=== PATIENT | male | born 2000 | race African-American/Black ===

== ENCOUNTER 2019-05-09 11:39 | Emergency (ER) | payer MEDICAID ==
[~2019-05-09] VITALS: Ht 172.7 cm; Wt 90.9 kg
[2019-05-09] MEDS ORDERED: QUET400T PO (12:17)
[2019-05-09] MEDS ORDERED: OLAN5TAB2 PO (12:17)
[2019-05-09 12:43] LABS: GLUCOSE,POINT OF CARE 100 MG/DL (70-110)
[2019-05-09 12:54] LABS: BASOPHILS % (AUTO) 0.3 % (0.0-2.0); EOSINOPHILS % (AUTO) 0.4 % (1.0-6.0); HEMOGLOBIN 14.8 g/dL (13.5-17.5); LYMPHOCYTES # (AUTO) 1.9 K/uL (1.0-4.8); LYMPHOCYTES % (AUTO) 14.9 % (22.0-44.0); MEAN CORPUSCULAR HEMOGLOBIN 31.4 pg (26.0-34.0); MEAN CORPUSCULAR HGB CONC 32.8 G/dL (31.0-37.0); MEAN CORPUSCULAR VOLUME 96 fL (80-100); MONOCYTES # (AUTO) 1.1 K/uL (0.1-1.0); NEUTROPHILS # (AUTO) 9.5 K/uL (1.8-7.7); NEUTROPHILS % (AUTO) 75.4 % (40.0-70.0); PLATELET COUNT (AUTO) 308 K/uL (150-450); RED CELL DISTRIBUTION WIDTH 12.1 % (11.5-14.5)
[2019-05-09 13:03] LABS: ANION GAP 9 mmol/L (8-16); CALCIUM, TOTAL 9.8 mg/dL (8.8-10.5); CARBON DIOXIDE 27 mmol/L (22-29); CHLORIDE 101 mmol/L (98-107); CREATININE 1.25 mg/dL (0.60-1.30); GLOMERULAR FILTR. RATE CALC > 60 mL/min (>60); GLUCOSE,RANDOM 95 mg/dL (70-110); POTASSIUM 4.1 mmol/L (3.5-5.1); SODIUM SERUM 137 mmol/L (136-145); UREA NITROGEN, BLOOD 11 mg/dL (7-18)
[2019-05-09 13:09] LABS: ALANINE AMINOTRANSFERASE 48 U/L (12-78); ALKALINE PHOSPHATASE 84 U/L (46-116); ASPARTATE AMINOTRANSFERASE 31 U/L (15-37); BILIRUBIN,TOTAL 1.1 mg/dL (0.1-1.0); TOTAL PROTEIN, SERUM 7.9 g/dL (6.4-8.2)
[2019-05-09 15:47] LABS: APPEARANCE,URINE CLEAR (CLEAR); BILIRUBIN,URINE NEGATIVE (NEGATIVE); GLUCOSE, URINE (UA) NEGATIVE (NEGATIVE); KETONES,URINE NEGATIVE (NEGATIVE); LEUKOCYTE ESTERASE ,URINE NEGATIVE (NEGATIVE); NITRATE,URINE NEGATIVE (NEGATIVE); OCCULT BLOOD,URINE NEGATIVE (NEGATIVE); PH,URINE 6.5 (5.0-8.0)
[2019-05-09 15:51] LABS: PROTEIN,URINE NEGATIVE (NEGATIVE)
[2019-05-09 15:52] LABS: AMPHET/METH SCREEN,URINE POSITIVE (NEGATIVE); BARBITURATE SCREEN, URINE NEGATIVE (NEGATIVE); BENZODIAZEPINES SCREEN,URINE NEGATIVE (NEGATIVE); CANNABINOID SCREEN,URINE POSITIVE (NEGATIVE); COCAINE SCREEN,URINE NEGATIVE (NEGATIVE); METHADONE SCREEN, URINE NEGATIVE (NEGATIVE); OPIATE SCREEN,URINE NEGATIVE (NEGATIVE); PHENCYCLIDINE SCREEN,URINE NEGATIVE (NEGATIVE)
[2019-05-09 17:32] VITALS: BP 132/92
== END 2019-05-09 17:33 | disposition home or self-care (01) ==
LOC: EMS 11:41
DX: F15.10 Other stimulant abuse, uncomplicated (principal); F12.90 Cannabis use, unspecified, uncomplicated; E11.9 Type 2 diabetes mellitus without complications; F41.9 Anxiety disorder, unspecified; F32.9 Major depressive disorder, single episode, unspecified; F20.9 Schizophrenia, unspecified; Z79.899 Other long term (current) drug therapy
CPT/HCPCS: 36415; 80053; 80307; 81003; 82962; 85025; 99285; G0480

== ENCOUNTER 2020-01-27 00:04 | Inpatient (IN) | payer MEDICAID ==
[~2020-01-27] VITALS: Ht 170.2 cm; Wt 97.5 kg
[~2020-01-27 00:04] MED LIST: OLAN5TAB2 PO; QUET400T PO
[2020-01-27] MEDS ORDERED: OLAN2.5T3 PO (01:19)
[2020-01-27] MEDS ORDERED: ZIPR20CA2 PO (01:19)
[2020-01-27 01:58] LABS: BASOPHILS % (AUTO) 0.5 % (0.0-2.0); EOSINOPHILS % (AUTO) 0.4 % (1.0-6.0); HEMATOCRIT 43.7 % (41-53); HEMOGLOBIN 14.5 g/dL (13.5-17.5); LYMPHOCYTES # (AUTO) 2.9 K/uL (1.0-4.8); LYMPHOCYTES % (AUTO) 21.2 % (22.0-44.0); MEAN CORPUSCULAR HEMOGLOBIN 30.6 pg (26.0-34.0); MEAN CORPUSCULAR HGB CONC 33.1 G/dL (31.0-37.0); MEAN CORPUSCULAR VOLUME 92 fL (80-100); MONOCYTES # (AUTO) 1.8 K/uL (0.1-1.0); MONOCYTES % (AUTO) 13.6 % (2.0-9.0); NEUTROPHILS # (AUTO) 8.8 K/uL (1.8-7.7); NEUTROPHILS % (AUTO) 64.3 % (40.0-70.0); PLATELET COUNT (AUTO) 250 K/uL (150-450); RED BLOOD CELL COUNT(AUTO) 4.74 MIL/uL (4.50-5.90); RED CELL DISTRIBUTION WIDTH 11.3 % (11.5-14.5)
[2020-01-27 02:06] LABS: AMPHET/METH SCREEN,URINE POSITIVE (NEGATIVE); BARBITURATE SCREEN, URINE NEGATIVE (NEGATIVE); BENZODIAZEPINES SCREEN,URINE NEGATIVE (NEGATIVE); CANNABINOID SCREEN,URINE NEGATIVE (NEGATIVE); COCAINE SCREEN,URINE NEGATIVE (NEGATIVE); METHADONE SCREEN, URINE NEGATIVE (NEGATIVE); OPIATE SCREEN,URINE NEGATIVE (NEGATIVE); PHENCYCLIDINE SCREEN,URINE NEGATIVE (NEGATIVE)
[2020-01-27 02:11] LABS: ANION GAP 8 mmol/L (8-16); CARBON DIOXIDE 29 mmol/L (22-29); CHLORIDE 100 mmol/L (98-107); CREATININE 1.21 mg/dL (0.60-1.30); GLOMERULAR FILTR. RATE CALC > 60 mL/min (>60); GLUCOSE,RANDOM 106 mg/dL (70-110); POTASSIUM 3.5 mmol/L (3.5-5.1); SODIUM SERUM 137 mmol/L (136-145); UREA NITROGEN, BLOOD 15 mg/dL (7-18)
[2020-01-27 02:16] LABS: ALANINE AMINOTRANSFERASE 92 U/L (12-78); ALBUMIN 3.6 g/dL (3.4-5.0); ALKALINE PHOSPHATASE 78 U/L (46-116); ASPARTATE AMINOTRANSFERASE 349 U/L (15-37); BILIRUBIN,TOTAL 1.1 mg/dL (0.1-1.0); TOTAL PROTEIN, SERUM 7.3 g/dL (6.4-8.2)
[2020-01-27] MEDS ORDERED: HALOPERIDOL 5 MG TABLET PO PRN (03:30)
[2020-01-27 05:28] LABS: APPEARANCE,URINE CLEAR (CLEAR); GLUCOSE, URINE (UA) NEGATIVE (NEGATIVE); KETONES,URINE 15 mg/dL (NEGATIVE); LEUKOCYTE ESTERASE ,URINE NEGATIVE (NEGATIVE); NITRATE,URINE NEGATIVE (NEGATIVE); OCCULT BLOOD,URINE NEGATIVE (NEGATIVE); PROTEIN,URINE TRACE (NEGATIVE); UROBILINOGEN,URINE 0.2 mg/dL (<=1.0)
[2020-01-27 05:35] LABS: BILIRUBIN,URINE PRELIM. POSITIVE (NEGATIVE)
[2020-01-27 08:32] LABS: GLUCOSE,POINT OF CARE 110 MG/DL (70-110)
[2020-01-27 09:47] VITALS: BP 135/99
[2020-01-27 10:01] VITALS: BP 135/99
[2020-01-27] MEDS ORDERED: INFLUENZA VIRUS VACCINE QVS 2019-20 (3YR+)/PF 60 MCG/0.5 ML SYRINGE IM ONE (11:45)
[2020-01-27] MEDS ORDERED: PNEUMOCOCCAL VACCINE POLYVALENT 0.5 ML VIAL [PPSV23] IM ONE (11:45)
[2020-01-27 16:15] VITALS: BP 140/89
[2020-01-27] MEDS: GABAPENTIN 300 MG CAPSULE PO SCH (17:36)
[2020-01-27] MEDS: ZIPRASIDONE HCL 40 MG CAPSULE PO SCH (17:36)
[2020-01-28] MEDS: ZIPRASIDONE HCL 40 MG CAPSULE PO SCH ×2 (07:01→16:11)
[2020-01-28] MEDS: GABAPENTIN 300 MG CAPSULE PO SCH ×2 (09:18→16:11)
[2020-01-29] MEDS: ZIPRASIDONE HCL 40 MG CAPSULE PO SCH ×3 (06:56→17:31)
[2020-01-29] MEDS: GABAPENTIN 300 MG CAPSULE PO SCH ×3 (08:30→17:31)
[2020-01-29] MEDS: ZOLPIDEM TARTRATE 10 MG TABLET PO PRN (20:09)
[2020-01-30] MEDS: ZIPRASIDONE HCL 40 MG CAPSULE PO SCH ×2 (06:42→17:25)
[2020-01-30] MEDS: GABAPENTIN 300 MG CAPSULE PO SCH ×2 (08:35→17:25)
[2020-01-30] MEDS ORDERED: ALBUTEROL SULFATE HFA 90 MCG/PUFF 8 GM INHALER IH PRN (18:15)
[2020-01-30] MEDS ORDERED: IBUPROFEN 400 MG TABLET PO PRN (18:15)
[2020-01-30] MEDS ORDERED: NICOTINE 14 MG/24 HOUR PATCH TD PRN (18:15)
[2020-01-30] MEDS ORDERED: GuaiFENesin/D-METHORPHAN [SUGAR-FREE] 200-20MG/10 ML SYRUP UDCUP PO PRN (18:15)
[2020-01-30] MEDS ORDERED: DOCUSATE SODIUM 100 MG CAPSULE PO PRN (18:15)
[2020-01-30] MEDS ORDERED: LOPERAMIDE HCL 2 MG CAPSULE PO PRN (18:15)
[2020-01-30] MEDS ORDERED: PETROLATUM,WHITE 28 GM JELLY TP PRN (18:15)
[2020-01-30] MEDS ORDERED: ONDANSETRON HCL 4 MG TABLET PO PRN (18:15)
[2020-01-30] MEDS ORDERED: ACETAMINOPHEN 325 MG TABLET PO PRN (18:15)
[2020-01-30] MEDS ORDERED: MAG HYDROX/AL HYDROX/SIMETH ES 30 ML SUSPENSION UDCUP PO PRN (18:15)
[2020-01-30] MEDS ORDERED: MAGNESIUM HYDROXIDE SUSPENSION 30 ML UDCUP PO PRN (18:15)
[2020-01-30] MEDS ORDERED: CloNIDine HCL 0.1 MG TABLET PO PRN (18:15)
[2020-01-30 19:35] VITALS: BP 111/64
[2020-01-30] MEDS: LORazepam 2 MG TABLET PO PRN (19:57)
[2020-01-30] MEDS: ZOLPIDEM TARTRATE 10 MG TABLET PO PRN (20:39)
[2020-01-31] MEDS: ZIPRASIDONE HCL 40 MG CAPSULE PO SCH (06:38)
[2020-01-31] MEDS: GABAPENTIN 300 MG CAPSULE PO SCH ×3 (09:00→15:52)
[2020-01-31 16:07] VITALS: BP 127/64
[2020-01-31] MEDS: LORazepam 2 MG TABLET PO PRN (16:54)
[2020-01-31] MEDS: ZIPRASIDONE HCL 60 MG CAPSULE PO SCH (17:14)
[2020-02-01] MEDS: ZIPRASIDONE HCL 60 MG CAPSULE PO SCH ×3 (06:42→16:37)
[2020-02-01] MEDS: GABAPENTIN 300 MG CAPSULE PO SCH ×2 (08:53→16:37)
[2020-02-01] MEDS: LORazepam 2 MG TABLET PO PRN (15:47)
[2020-02-01 16:16] VITALS: BP 133/78
[2020-02-02] MEDS: ZIPRASIDONE HCL 60 MG CAPSULE PO SCH ×2 (06:43→16:24)
[2020-02-02] MEDS: GABAPENTIN 300 MG CAPSULE PO SCH ×2 (08:40→16:24)
[2020-02-02] MEDS: LORazepam 2 MG TABLET PO PRN (14:31)
[2020-02-02 16:16] VITALS: BP 127/67
[2020-02-03] MEDS: ZIPRASIDONE HCL 60 MG CAPSULE PO SCH ×3 (06:46→16:50)
[2020-02-03] MEDS: GABAPENTIN 300 MG CAPSULE PO SCH ×3 (08:13→16:50)
[2020-02-03 08:57] VITALS: BP 144/76
[2020-02-03] MEDS: LORazepam 2 MG TABLET PO PRN (13:09)
[2020-02-04] MEDS: ZIPRASIDONE HCL 60 MG CAPSULE PO SCH (06:55)
[2020-02-04] MEDS: GABAPENTIN 300 MG CAPSULE PO SCH (08:24)
[2020-02-04 10:49] VITALS: BP 144/76
[2020-02-04] MEDS ORDERED: GABA-531 PO (11:54)
== END 2020-02-04 13:15 | disposition short-term general hospital (02) | DRG 885 ==
LOC: EMS 00:04 → 3EC 08:22
PROVIDERS: ADMIT Psychiatry & Neurology Psychiatry; ATTEND Psychiatry & Neurology Psychiatry
DX: F20.0 Paranoid schizophrenia (principal); R45.851 Suicidal ideations; D72.829 Elevated white blood cell count, unspecified; E11.9 Type 2 diabetes mellitus without complications; Z59.0 Homelessness; R00.0 Tachycardia, unspecified; F19.10 Other psychoactive substance abuse, uncomplicated; R74.0 Nonspecific elevation of levels of transaminase and lactic acid dehydrogenase [LDH]; F10.20 Alcohol dependence, uncomplicated; F12.90 Cannabis use, unspecified, uncomplicated; F32.9 Major depressive disorder, single episode, unspecified; F41.9 Anxiety disorder, unspecified
CPT/HCPCS: 87081; G0480

== ENCOUNTER 2020-02-17 17:49 | Inpatient (IN) | payer MEDICAID ==
[~2020-02-17] VITALS: Ht 170.2 cm; Wt 99.0 kg
[~2020-02-17 17:49] MED LIST changes: +GABA-531 PO; -OLAN5TAB2 PO; -QUET400T PO; +ZIPR20CA2 PO
[2020-02-17] MEDS ORDERED: VALP250C48 PO (17:57)
[2020-02-17] MEDS ORDERED: ZIPR40CA13 PO (17:57)
[2020-02-17 18:39] LABS: BASOPHILS % (AUTO) 0.4 % (0.0-2.0); EOSINOPHILS % (AUTO) 0.1 % (1.0-6.0); HEMATOCRIT 49.2 % (41-53); HEMOGLOBIN 16.2 g/dL (13.5-17.5); LYMPHOCYTES # (AUTO) 1.7 K/uL (1.0-4.8); LYMPHOCYTES % (AUTO) 14.7 % (22.0-44.0); MEAN CORPUSCULAR HEMOGLOBIN 30.6 pg (26.0-34.0); MEAN CORPUSCULAR HGB CONC 32.9 G/dL (31.0-37.0); MEAN CORPUSCULAR VOLUME 93 fL (80-100); MONOCYTES # (AUTO) 1.5 K/uL (0.1-1.0); MONOCYTES % (AUTO) 12.5 % (2.0-9.0); NEUTROPHILS # (AUTO) 8.5 K/uL (1.8-7.7); NEUTROPHILS % (AUTO) 72.3 % (40.0-70.0); PLATELET COUNT (AUTO) 331 K/uL (150-450); RED CELL DISTRIBUTION WIDTH 11.5 % (11.5-14.5)
[2020-02-17 18:48] LABS: ANION GAP 11 mmol/L (8-16); CALCIUM, TOTAL 9.5 mg/dL (8.8-10.5); CARBON DIOXIDE 27 mmol/L (22-29); CHLORIDE 96 mmol/L (98-107); CREATININE 1.09 mg/dL (0.60-1.30); GLOMERULAR FILTR. RATE CALC > 60 mL/min (>60); GLUCOSE,RANDOM 121 mg/dL (70-110); POTASSIUM 3.7 mmol/L (3.5-5.1); SODIUM SERUM 134 mmol/L (136-145); UREA NITROGEN, BLOOD 11 mg/dL (7-18)
[2020-02-17 18:56] LABS: ALANINE AMINOTRANSFERASE 59 U/L (12-78); ALBUMIN 4.8 g/dL (3.4-5.0); ALKALINE PHOSPHATASE 91 U/L (46-116); ASPARTATE AMINOTRANSFERASE 31 U/L (15-37); BILIRUBIN,TOTAL 0.8 mg/dL (0.1-1.0); TOTAL PROTEIN, SERUM 9.3 g/dL (6.4-8.2); VALPROIC ACID < 3 mcg/mL (50-100)
[2020-02-17 18:57] LABS: AMPHET/METH SCREEN,URINE POSITIVE (NEGATIVE); BARBITURATE SCREEN, URINE NEGATIVE (NEGATIVE); BENZODIAZEPINES SCREEN,URINE NEGATIVE (NEGATIVE); CANNABINOID SCREEN,URINE POSITIVE (NEGATIVE); COCAINE SCREEN,URINE NEGATIVE (NEGATIVE); METHADONE SCREEN, URINE NEGATIVE (NEGATIVE); OPIATE SCREEN,URINE NEGATIVE (NEGATIVE); PHENCYCLIDINE SCREEN,URINE NEGATIVE (NEGATIVE)
[2020-02-17] MEDS ORDERED: ZOLPIDEM TARTRATE 10 MG TABLET PO PRN (19:45)
[2020-02-17] MEDS ORDERED: HALOPERIDOL 5 MG TABLET PO PRN (19:45)
[2020-02-17] MEDS ORDERED: LORazepam 1 MG TABLET PO ONE (20:00)
[2020-02-17] MEDS: LORazepam 2 MG TABLET PO PRN (21:45)
[2020-02-17 22:07] VITALS: BP 126/78
[2020-02-17] MEDS ORDERED: INFLUENZA VIRUS VACCINE QVS 2019-20 (3YR+)/PF 60 MCG/0.5 ML SYRINGE IM ONE (22:45)
[2020-02-17] MEDS ORDERED: PNEUMOCOCCAL VACCINE POLYVALENT 0.5 ML VIAL [PPSV23] IM ONE (22:45)
[2020-02-17] MEDS ORDERED: CloNIDine HCL 0.1 MG TABLET PO PRN (23:00)
[2020-02-17] MEDS ORDERED: LOPERAMIDE HCL 2 MG CAPSULE PO PRN (23:00)
[2020-02-17] MEDS ORDERED: ACETAMINOPHEN 325 MG TABLET PO PRN (23:00)
[2020-02-17] MEDS ORDERED: MAGNESIUM HYDROXIDE SUSPENSION 30 ML UDCUP PO PRN (23:00)
[2020-02-17] MEDS ORDERED: ONDANSETRON HCL 4 MG TABLET PO PRN (23:00)
[2020-02-17] MEDS ORDERED: ALBUTEROL SULFATE HFA 90 MCG/PUFF 8 GM INHALER IH PRN (23:00)
[2020-02-17] MEDS ORDERED: NICOTINE 14 MG/24 HOUR PATCH TD PRN (23:00)
[2020-02-17] MEDS ORDERED: DOCUSATE SODIUM 100 MG CAPSULE PO PRN (23:00)
[2020-02-17] MEDS ORDERED: GuaiFENesin/D-METHORPHAN [SUGAR-FREE] 200-20MG/10 ML SYRUP UDCUP PO PRN (23:00)
[2020-02-17] MEDS ORDERED: IBUPROFEN 400 MG TABLET PO PRN (23:00)
[2020-02-18] MEDS: GABAPENTIN 300 MG CAPSULE PO SCH ×2 (09:57→17:04)
[2020-02-18] MEDS ORDERED: IBUPROFEN 400 MG TABLET PO PRN (11:15)
[2020-02-18] MEDS ORDERED: MAG HYDROX/AL HYDROX/SIMETH ES 30 ML SUSPENSION UDCUP PO PRN (11:15)
[2020-02-18] MEDS ORDERED: ONDANSETRON HCL 4 MG TABLET PO PRN (11:15)
[2020-02-18] MEDS ORDERED: NICOTINE 14 MG/24 HOUR PATCH TD PRN (11:15)
[2020-02-18] MEDS ORDERED: DOCUSATE SODIUM 100 MG CAPSULE PO PRN (11:15)
[2020-02-18] MEDS ORDERED: MAGNESIUM HYDROXIDE SUSPENSION 30 ML UDCUP PO PRN (11:15)
[2020-02-18] MEDS ORDERED: ALBUTEROL SULFATE HFA 90 MCG/PUFF 8 GM INHALER IH PRN (11:15)
[2020-02-18] MEDS ORDERED: CloNIDine HCL 0.1 MG TABLET PO PRN (11:15)
[2020-02-18] MEDS ORDERED: ACETAMINOPHEN 325 MG TABLET PO PRN (11:15)
[2020-02-18] MEDS ORDERED: GuaiFENesin/D-METHORPHAN [SUGAR-FREE] 200-20MG/10 ML SYRUP UDCUP PO PRN (11:15)
[2020-02-18] MEDS ORDERED: LOPERAMIDE HCL 2 MG CAPSULE PO PRN (11:15)
[2020-02-18] MEDS ORDERED: PETROLATUM,WHITE 28 GM JELLY TP PRN (11:15)
[2020-02-18] MEDS: LORazepam 2 MG TABLET PO PRN (15:38)
[2020-02-18 16:29] VITALS: BP 120/80
[2020-02-18] MEDS: ZIPRASIDONE HCL 40 MG CAPSULE PO SCH (17:33)
[2020-02-18] MEDS: DIVALPROEX SODIUM 500 MG ER TABLET PO SCH (20:17)
[2020-02-19] MEDS: ZIPRASIDONE HCL 40 MG CAPSULE PO SCH ×2 (06:42→16:03)
[2020-02-19] MEDS: GABAPENTIN 300 MG CAPSULE PO SCH ×2 (08:54→16:03)
[2020-02-19 09:32] LABS: THYROID STIMULATING HORMONE 0.64 uIU/mL (0.36-3.74)
[2020-02-19 16:58] VITALS: BP 116/75
[2020-02-19] MEDS: LORazepam 2 MG TABLET PO PRN (17:50)
[2020-02-19] MEDS: DIVALPROEX SODIUM 500 MG ER TABLET PO SCH (20:58)
[2020-02-20] MEDS: ZIPRASIDONE HCL 40 MG CAPSULE PO SCH ×2 (07:00→16:14)
[2020-02-20] MEDS: GABAPENTIN 300 MG CAPSULE PO SCH ×2 (09:00→16:14)
[2020-02-20 16:58] VITALS: BP 114/71
[2020-02-20] MEDS: DIVALPROEX SODIUM 500 MG ER TABLET PO SCH (20:46)
[2020-02-21] MEDS: ZIPRASIDONE HCL 40 MG CAPSULE PO SCH (06:50)
[2020-02-21] MEDS: GABAPENTIN 300 MG CAPSULE PO SCH (08:30)
[2020-02-21] MEDS ORDERED: ZIPR40CA2 PO (12:39)
[2020-02-21] MEDS ORDERED: DIVA500T52 PO (12:39)
== END 2020-02-21 14:05 | disposition home or self-care (01) | DRG 885 ==
LOC: EMS 17:51 → 3EC 20:00
PROVIDERS: ADMIT Psychiatry & Neurology Psychiatry; ATTEND Psychiatry & Neurology Psychiatry
DX: F20.9 Schizophrenia, unspecified (principal); E87.1 Hypo-osmolality and hyponatremia; R45.851 Suicidal ideations; D72.829 Elevated white blood cell count, unspecified; E11.9 Type 2 diabetes mellitus without complications; F12.90 Cannabis use, unspecified, uncomplicated; F15.90 Other stimulant use, unspecified, uncomplicated; F32.9 Major depressive disorder, single episode, unspecified; F41.9 Anxiety disorder, unspecified; R03.0 Elevated blood-pressure reading, without diagnosis of hypertension; R00.0 Tachycardia, unspecified; Z91.5 Personal history of self-harm; Z79.899 Other long term (current) drug therapy
CPT/HCPCS: 84443; 87081; G0480